=== PATIENT | male | born 1980 | race Caucasian/White ===

== ENCOUNTER 2023-07-19 02:10 | Emergency (ER) | payer BC ==
[~2023-07-19] VITALS: Ht 182.9 cm; Wt 83.9 kg
[~2023-07-19 02:10] MED LIST: HYDACE5 PO
[2023-07-19] MEDS ORDERED: FentaNYL Citrate 50 MCG/ML 2 ML Injection IV ONE (03:40)
[2023-07-19 05:00] VITALS: BP 143/85
== END 2023-07-19 05:19 | disposition home or self-care (01) ==
LOC: ER 02:10
DX: K42.9 Umbilical hernia without obstruction or gangrene (principal)
CPT/HCPCS: 96374; 99282-25; J3010